=== PATIENT | male | born 1945 | race Hispanic/Latino ===

== ENCOUNTER 2021-08-07 12:06 | Day surgery (SDC) | payer MEDICARE ==
[2021-07-30 11:16] LABS: Hematocrit 40.6 % (35.5-45.6); Hemoglobin 13.6 gm/dl (11.8-15.2); Mean Corpuscular HGB Conc 34 % (32-34); Mean Corpuscular Volume 90 fl (84-94); Platelet Count 267 K/mm3 (140-440); Red Blood Count 4.51 M/mm3 (3.65-5.03); Red Cell Distribution Width 13.2 % (13.2-15.2)
[2021-07-30 11:31] LABS: Alanine Aminotransferase 25 units/L (7-56); Blood Urea Nitrogen 19 mg/dL (9-20); Calcium 8.9 mg/dL (8.4-10.2); Hemolysis Index 12
[2021-07-30 11:37] LABS: BUN/Creatinine Ratio 27
--- NOTE | 2021-08-07 08:53 | Anesthesia Day of Surgery ---
Anesthesia Day of Surgery - Day of Surgery Patient Examined: Yes Patient H&P Reviewed: Yes Patient is NPO: Yes
--- NOTE | 2021-08-07 08:54 | Anesthesia Consultation ---
Anesthesia Consult and Med Hx Date of service: 08/07/21 - Airway Anesthetic Teeth Evaluation: Crowns ROM Head & Neck: Adequate Mental/Hyoid Distance: Adequate Mallampati Class: Class I Intubation Access Assessment: Good - Pre-Operative Health Status ASA Pre-Surgery Classification: ASA2 Proposed Anesthetic Plan: General - Pulmonary Hx Smoking: No Hx Sleep Apnea: No (SNORE-HIGH RISK ON PRESCREEN) - Cardiovascular System Hx Hypertension: No Hx Heart Attack/AMI: No - Central Nervous System Hx Psychiatric Problems: No - Gastrointestinal Hx Gastroesophageal Reflux Disease: No - Hematic Hx Sickle Cell Disease: No - Other Systems Hx Alcohol Use: Yes (OCC.) Hx Substance Use: No Hx Cancer: No Hx Obesity: No
--- NOTE | 2021-08-07 10:38 | Electrocardiograph Report ---
[facility] Test Date: 2021-08-07 Test Time: 09:02:41 Pat Name: DEVANG SHIPLEY Department: Room: Gender: M Nurse Staff Community [facility]: [place]JAY : 1945 Requested By: GRAEME THEODORE Order Number: [id number] Reading MD: Simón Farias Measurements Intervals [place] Rate: 76 P: 0 IN: 253 QRS: 19 QRSD: 108 T: 59 QT: 400 QTc: 451 Interpretive Statements Sinus rhythm Multiple premature complexes, vent & supraven Prolonged IN interval No previous ECG available for comparison Electronically Signed On 08-07-2021 10:38:35 EDT by Simón Farias
--- NOTE | 2021-08-07 11:22 | Short Stay Summary ---
Short Stay Documentation Date of service: 08/07/21 - History H&P: obtained from office - Allergies and Medications Current Medications: Allergies Penicillins Adverse Reaction (Verified 07/28/21 12:55) Unknown Home Medications Medication Instructions Recorded Confirmed Last Taken Type Celium Husk 1 tsp PO DAILY 07/28/21 Unknown History Glucosamine-Chondroitin 2 dose PO DAILY 07/28/21 07/28/21 Unknown History Multivitamin [One-Daily 1 each PO DAILY 07/28/21 07/28/21 Unknown History Multi-Vitamin] [place]-3 Fatty Acids/Fish Oil [Fish 1 cap PO DAILY 07/28/21 07/28/21 Unknown History Oil] Tamsulosin [Flomax] 0.4 mg PO QDAY 07/28/21 07/28/21 Unknown History Active Medications Gentamicin Sulfate/Sodium Chloride (Gentamicin/Ns 80 Mg/100 Ml) 100 mls @ 200 mls/hr IV ONCE@0830 JOEY; Protocol Stop: 08/07/21 17:00 Lactated Ringer's (Lactated Ringers) 1,000 mls @ 125 mls/hr IV DIRECT JOEY - Brief post op/procedure progress note Date of procedure: 08/07/21 Pre-op diagnosis: rt ureteral stone Post-op diagnosis: other (prostatic stone (2nd stone)) Procedure: cysto, removal of prostatic stone, rt prg, ureteroscopy, stent , ESWL Anesthesia: MO Surgeon: GRAEME THEODORE Condition: stable - Hospital course Hospital course: flomax,bactrim,norco,post op info on chart - Disposition Condition at discharge: Stable Disposition: 01 HOME / SELF CARE / HOMELESS Short Stay Discharge Plan Follow up with: JAROCHO DORAN MD [Primary Care Provider] - 7 Days
--- NOTE | 2021-08-07 11:44 | Operative Report ---
DATE OF SURGERY: 08/07/2021 PREOPERATIVE DIAGNOSIS: Right ureteral stone. POSTOPERATIVE DIAGNOSIS: Right ureteral stone. Stone of the prostate and impacted right ureteral stone, distal. PROCEDURES PERFORMED: Cystoscopy, removal of prostatic stone with a grasper, right retrograde pyelogram, right ureteroscopy, holmium laser lithotripsy of impacted stone, double-J stent with an external string (6-[place] x 24 cm), right extracorporal shockwave lithotripsy. SURGEON: Krishna Magana MD ANESTHESIA: General. ESTIMATED BLOOD LOSS: Minimal. FLUIDS: Crystalloid. COMPLICATIONS: No complications. INDICATIONS: This patient is a 76-year-old gentleman seen in our [place] office for right-sided pain. CT of abdomen and pelvis and KUB revealed a 7 mm ureteral stone. He presents today for lithotripsy, possible ureteroscopy. Full discussion in the preoperative area where written information was provided. DESCRIPTION OF PROCEDURE: The patient was taken to the operative suite, placed in a supine position. After adequate general anesthesia, placed in a dorsal lithotomy position, prepped and draped in a sterile fashion. On table and desk finisher film, he had multiple calcifications in the pelvis, at least 5, difficult to ascertain the stone. At this point, I elected to start with ureteroscopy. He was placed in the dorsal lithotomy position, prepped and draped in a sterile fashion. Pancystourethroscopy was performed with a 22-[place] Storz cystoscope. Normal urethra. Prostate, obvious stone in the prostate that was engaged with alligator graspers and extracted and will be given to the patient. His prostate did display some moderate trilobar obstruction. Bladder, diffuse trabeculation, a little difficult to see his ureteral orifice due to trabeculation. No other stones could be seen in the bladder. Right retrograde pyelogram was obtained with an 8-[place] Tiera catheter and 8 mL of contrast. Most of the calcifications were not in the line of the right ureter; however, in the middle of the pelvic wing you could see a stone defect in the ureter. No other calcifications could be seen in the ureter following it up to the renal pelvis. He did have some J-hooking of the ureter. I placed two 0.035 Glidewires in the right collecting system under fluoroscopy. Rigid ureteroscopy was performed. The distal stone could be partially visualized. There was some edema. I was able to utilize a 200 micron holmium fiber starting at 4 ortega and going up to 6 ortega. Got some fragmentation of the stone; however, there was a fair amount of edema. At that point, I elected to place a stent, 6-[place] 24 double-J stent with an external string. He was then placed in the supine position. The stone could be appreciated on fluoroscopy. Extracorporal shock wave lithotripsy was administered with a maximum kV of 8 and 3000 shocks, with adequate fragmentation. The patient tolerated the procedure well and was extubated and taken to recovery room. He will go home on Flomax, Bactrim and [place] and follow up in the office. He was given his stone. Stone in the prostate for analysis. TID: [id number] RECEIPT: [id number] DEYSI/HEYDI
[~2021-08-07 12:06] MED LIST: GENTAMICIN/NS 80 MG/100 ML 100 ML IV SCH; IOHEXOL 300 MG/ML 50ML IV ONE; LACTATED RINGERS 1,000 ML IV SCH; LACTATED RINGERS 1,000 ML ONE; LIDOCAINE MPF (2%) 20 MG/1 ML VIAL 5 ML ONE; ONDANSETRON 4 MG/2 ML INJ ONE; WATER FOR IRRIG STERILE 1,500 ML BOTTLE IR ONE; WATER FOR IRRIG STERILE 2000 ML IR ONE; dexAMETHasone 20 MG/5 ML VIAL ONE; fentaNYL 100 MCG/2 ML INJ ONE; propofoL 200 MG/20 ML VIAL IV ONE
[2021-08-07 12:53] VITALS: BP 134/82
--- NOTE | 2021-08-07 13:19 | Post Anesthesia Evaluation ---
- Post Anesthesia Evaluation Patient Participated: Yes Airway Patent: Yes Stable Respiratory Function: Yes Nausea/Vomiting: No Temp > 96.8F: Yes Pain Manageable: Yes Adequeate Hydration: Yes Anesthesia Complications: No Block Receding Appropriately: Not Applicable Patient on Ventilator: No
== END 2021-08-07 12:30 | disposition home or self-care (01) ==
LOC: OR 12:06
PROVIDERS: ATTEND Urology
DX: N20.1 Calculus of ureter (principal); N42.0 Calculus of prostate; Z20.822 Contact with and (suspected) exposure to COVID-19; Z88.0 Allergy status to penicillin; Z79.899 Other long term (current) drug therapy; Z87.440 Personal history of urinary (tract) infections; Z72.89 Other problems related to lifestyle; Z98.890 Other specified postprocedural states
CPT/HCPCS: 36415; 50590; 52356; 80053; 85027; 93005; C1758; C1769; C2617; J1100; J1580; J2405; J2704; J3010; J7120; U0003